=== PATIENT | female | born 1950 | race Caucasian/White ===

== ENCOUNTER 2016-08-11 05:53 | Day surgery (SDC) | payer OTHER, BC ==
[~2016-08-11] VITALS: Ht 162.6 cm; Wt 87.1 kg
[~2016-08-11 05:53] MED LIST: ALLEGRA180 MG PO; AMBIEN10 MG PO; ARTHROTEC 751 TABLET PO; Ambien PO; Amoxicillin PO; BACTRIM,SEPT1 TABLET PO; BONIVA150 MG PO; Calcium Citrate 600/ PO; DURAGESIC25 MCG TD; Ditropan PO; Duragesic TD; EFFEXOR75 MG PO; Effexor XR PO; FLEXERIL10 MG PO; Flexeril PO; HYZAAR 100-21 TABLET PO; Hyzaar 100-25 PO; LAMICTAL25 MG PO; LOPRESSOR100 M1 PO; LOPRESSOR50 MG PO; LaMICtal XR PO; Lopressor PO; NEXIUM40 MG PO; NORVASC5 MG PO; Nucynta PO; PERCOCET 5/31 TABLET PO; PREMARIN0.9 MG PO; PREMPRO PO; Percocet 5/325,Endoc PO; Protonix PO; TOVIAZ8 MG PO; Theragran PO
[2016-08-11 06:11] VITALS: BP 147/70
[2016-08-11 06:50] VITALS: BP 151/72
[2016-08-11 07:00] LABS: POINT-OF-CARE METER ID UU14162508; POINT-OF-CARE USER ID AHSUCEG
[2016-08-11 10:55] VITALS: BP 142/61
== END 2016-08-11 13:31 | disposition home or self-care (01) ==
LOC: SDC 05:53 → 2EAST 05:55 → SDC 13:43
PROVIDERS: Neurological Surgery
DX: T85.733A Infection and inflammatory reaction due to implanted electronic neurostimulator of spinal cord, electrode (lead), initial encounter (principal); Y83.1 Surgical operation with implant of artificial internal device as the cause of abnormal reaction of the patient, or of later complication, without mention of misadventure at the time of the procedure; B95.4 Other streptococcus as the cause of diseases classified elsewhere; M48.06 Spinal stenosis, lumbar region; M43.16 Spondylolisthesis, lumbar region; Z98.1 Arthrodesis status; G89.29 Other chronic pain; M96.1 Postlaminectomy syndrome, not elsewhere classified; I10 Essential (primary) hypertension; Z87.11 Personal history of peptic ulcer disease; Z87.19 Personal history of other diseases of the digestive system
CPT/HCPCS: 82948; 87070; 87075; 87076; 87205; G0378; J0330; J0690; J1170; J1580; J1885; J2250; J2405; J2765; J3010; J3480; J7120

== ENCOUNTER → 2017-11-01 | Outpatient (CLI) | payer OTHER, BC ==
[~2017-11-01] VITALS: Ht 162.6 cm; Wt 83.9 kg
[~2017-11-01] MED LIST changes: +LIPITOR20 MG PO
[2017-11-01 13:15] LABS: CHLORIDE 103 MEQ/L (99-109); CREATININE 0.8 MG/DL (0.6-1.3); GFR ESTIMATE (CALCULATED) > 59 mL/min/; GLUCOSE 94 mg/dL (70-99); POTASSIUM 3.9 MEQ/L (3.7-5.4); SODIUM 140 MEQ/L (136-147); UREA NITROGEN (BUN) 14 mg/dL (9-23)
== END | disposition home or self-care (01) ==
LOC: AMB 11:41
PROVIDERS: Anesthesiology
DX: Z12.11 Encounter for screening for malignant neoplasm of colon (principal); K29.70 Gastritis, unspecified, without bleeding; K29.80 Duodenitis without bleeding; I10 Essential (primary) hypertension; K21.9 Gastro-esophageal reflux disease without esophagitis; Z80.0 Family history of malignant neoplasm of digestive organs; Z79.82 Long term (current) use of aspirin
CPT/HCPCS: 43239; G0105; 80048; 88305; 88342 TC; J3010